=== PATIENT | female | born 1985 | race Caucasian/White ===

== ENCOUNTER 2016-06-13 15:16 | Emergency (ER) | payer OTHER ==
[~2016-06-13 15:16] MED LIST: LEVOTHYROXINE75 MCG PO; PHENERGAN25 MG PO; VOLTAREN75 MG PO
== END 2016-06-13 16:00 | disposition home or self-care (01) ==
LOC: SED 15:16
DX: T23.072A Burn of unspecified degree of left wrist, initial encounter (principal); T23.012A Burn of unspecified degree of left thumb (nail), initial encounter; F17.210 Nicotine dependence, cigarettes, uncomplicated; X08.8XXA Exposure to other specified smoke, fire and flames, initial encounter; Z23 Encounter for immunization
CPT/HCPCS: 16020; 90471; 90715; 99283